=== PATIENT | male | born 1995 | race Caucasian/White ===

== ENCOUNTER 2018-08-18 12:18 | Emergency (ER) | payer SELFPAY ==
[2018-08-18 12:38] VITALS: BP 132/70
--- NOTE | 2018-08-18 12:56 | ER Document Report ---
Addendum entered and electronically signed by ELIZABETH VELÁZQUEZ PA-C 08/18/18 14:16: Course - Re-evaluation Re-evalutation: 08/18/18 14:14 I was notified by nursing that the patient would like to sign out AGAINST MEDICAL ADVICE as he needs to leave and does not want to stay. I went into review with the patient and thoroughly reviewed the risk and benefit of leaving AGAINST MEDICAL ADVICE including the possibility of worsening symptoms and . Patient has verbalized understanding of this and would like to sign out AMA. Patient given strict return precautions. - Vital Signs Vital signs: Temp Pulse Resp BP Pulse Ox 97.7 F 60 17 132/70 H 97 08/18/18 12:36 08/18/18 12:40 08/18/18 12:36 08/18/18 12:36 08/18/18 12:36 - Laboratory Result Diagrams: 08/18/18 13:15 08/18/18 13:15 Discharge - Discharge Clinical Impression: Atypical chest pain Condition: Stable Disposition: AGAINST MEDICAL ADVICE Additional Instructions: You are electing to sign out AGAINST MEDICAL ADVICE. You are aware that your condition can worsen and can result in . Do not hesitate to return for any worsening or concerning symptoms. Maintain adequate fluid and food intake Take home medications as directed Monitor blood pressure daily and keep a log Monitor symptoms for any acute changes Recheck with your PCM in 2-3 days Consider a follow-up with cardiology Return to the ED with any worsening symptoms and/or development of fever, headache, chest pain, palpitations, syncope, shortness of breath, trouble breathing, abdominal pain, n/v/d, blood in stool/urine, loss of control of bowel/bladder, urinary retention, muscle weakness/paralysis, numbness/tingling, or other worsening symptoms that are concerning to you. Forms: Elevated Blood Pressure, Smoking Cessation Education Original Note: ED Medical Screen (RME) - General Chief Complaint: Chest Pain Stated Complaint: CHEST PAIN Time Seen by Provider: 08/18/18 12:51 TRAVEL OUTSIDE OF THE [place] IN LAST 30 DAYS: No - HPI Notes: 08/18/18 12:54 Patient is a 22-year-old male who presents emergency department complaining of chest pain and trouble breathing. Patient states that he has had pain chronically, but increasing over the last couple weeks and pain that woke him up from sleep last night. Patient states that his shortness of breath associated with it at that time. He currently does not have any shortness of breath, but does have the pain. Pain will occasionally radiate to his back into his left shoulder. Food intake does not improve or worsen. + smoker and mother had SD. Denies any headache, fever, URI, sore throat, syncope, cough, wheeze, abdominal pain, nausea/vomiting/diarrhea, urinary retention, dysuria, hematuria, loss of control of bowel or bladder, numbness/tingling, saddle anesthesia, muscle paralysis/weakness, or rash. I have treated and performed a rapid initial assessment of this patient. A comprehensive ED assessment and evaluation of the patient, analysis of test results and completion of medical decision making process will be conducted by additional ED providers. PHYSICAL EXAMINATION: GENERAL: Well-appearing, well-nourished and in no acute distress. A&Ox4. Answers questions appropriately. LUNGS: Breath sounds clear to auscultation bilaterally and equal. No wheezes rales or rhonchi. HEART: Regular rate and rhythm without murmurs, rubs, gallops. ABDOMEN: Soft, nondistended abdomen. No guarding, no rebound. Normal bowel sounds present. No CVA tenderness bilaterally. non-tender. Extremities: No cyanosis, clubbing, or edema b/l. No lower extremity asymmetry. Tammy negative bilaterally. NEUROLOGICAL: Normal speech, normal gait. PSYCH: Normal mood, normal affect. - Related Data Allergies/Adverse Reactions: No Known Allergies Allergy (Unverified 08/18/18 12:21) Physical Exam - Vital signs Vitals: Temp Pulse Resp BP Pulse Ox 97.7 F 61 17 132/70 H 97 08/18/18 12:36 08/18/18 12:36 08/18/18 12:36 08/18/18 12:36 08/18/18 12:36 Course - Vital Signs Vital signs: Temp Pulse Resp BP Pulse Ox 97.7 F 61 17 132/70 H 97 08/18/18 12:36 08/18/18 12:36 08/18/18 12:36 08/18/18 12:36 08/18/18 12:36
--- NOTE | 2018-08-18 13:31 | EKG REPORT ---
SEVERITY:- NORMAL ECG - SINUS RHYTHM : Confirmed by: Miguel A Perez MD 18-Aug-2018 13:30:18
[2018-08-18 13:33] LABS: ABSOLUTE EOSINOPHILS # (AUTO) 0.1 10^3/uL (0.0-0.6); ABSOLUTE LYMPHOCYTES (AUTO) 1.2 10^3/uL (0.5-4.7); ABSOLUTE MONOCYTES (AUTO) 0.8 10^3/uL (0.1-1.4); ABSOLUTE NEUT (AUTO) 5.4 10^3/uL (1.7-8.2); BASOPHILS % (AUTO) 0.5 % (0-2); EOSINOPHILS % (AUTO) 1.3 % (0-6); HEMATOCRIT 44.2 % (37.9-51.0); HEMOGLOBIN 15.3 g/dL (13.5-17.0); LYMPHOCYTES % (AUTO) 16.3 % (13-45); MEAN CORPUSCULAR HEMOGLOBIN 30.6 pg (27.0-33.4); MEAN CORPUSCULAR HGB CONC 34.7 g/dL (32.0-36.0); MEAN CORPUSCULAR VOLUME 88 fl (80-97); PLATELET COUNT 196 10^3/uL (150-450); RED BLOOD COUNT 5.02 10^6/uL (4.35-5.55); RED CELL DISTRIBUTION WIDTH 13.4 % (11.5-14.0); SEGMENTED NEUTROPHILS % (AUTO) 71.9 % (42-78); TOTAL CELLS COUNTED % (AUTO) 100 %; WHITE BLOOD COUNT 7.5 10^3/uL (4.0-10.5)
[2018-08-18 13:49] LABS: URINE AMPHETAMINES SCREEN NEGATIVE; URINE BARBITURATES SCREEN NEGATIVE; URINE BENZODIAZEPINES SCREEN NEGATIVE; URINE COCAINE SCREEN NEGATIVE; URINE MARIJUANA (THC) SCREEN UNCONFIRMED POSITIVE; URINE METHADONE SCREEN NEGATIVE; URINE PHENCYCLIDINE SCREEN NEGATIVE
[2018-08-18 13:52] LABS: ALANINE AMINOTRANSFERASE 21 U/L (21-72); ALBUMIN 4.5 g/dL (3.5-5.0); ALKALINE PHOSPHATASE 59 U/L (38-126); ANION GAP 10 (5-19); ASPARTATE AMINO TRANSFERASE 26 U/L (17-59); BILIRUBIN,DIRECT 0.3 mg/dL (0.0-0.4); BILIRUBIN,TOTAL 0.6 mg/dL (0.2-1.3); BLOOD UREA NITROGEN 19 mg/dL (7-20); CALCIUM 9.9 mg/dL (8.4-10.2); CARBON DIOXIDE 29 mmol/L (22-30); CHLORIDE 100 mmol/L (98-107); GLUCOSE 84 mg/dL (75-110); PHOSPHORUS 3.7 mg/dL (2.5-4.5); POTASSIUM 4.1 mmol/L (3.6-5.0); SODIUM 138.9 mmol/L (137-145); TOTAL PROTEIN 7.3 g/dL (6.3-8.2)
--- NOTE | 2018-08-18 14:08 | RADIOLOGY REPORT (SQ) ---
EXAM DESCRIPTION: CHEST SINGLE VIEW COMPLETED DATE/TIME: 08/18/2018 1:51 pm REASON FOR STUDY: cp COMPARISON: None. EXAM PARAMETERS: NUMBER OF VIEWS: One view. TECHNIQUE: Single frontal radiographic view of the chest acquired. RADIATION DOSE: NA LIMITATIONS: None. FINDINGS: LUNGS AND PLEURA: No opacities, masses or pneumothorax. No pleural effusion. MEDIASTINUM AND HILAR STRUCTURES: No masses. Contour normal. HEART AND VASCULAR STRUCTURES: Heart normal in size. Normal vasculature. BONES: No acute findings. HARDWARE: None in the chest. OTHER: No other significant finding. IMPRESSION: 1. NO ACUTE RADIOGRAPHIC FINDING IN THE CHEST. TECHNICAL DOCUMENTATION: JOB ID: [id number] [employer]- All Rights Reserved Reading location - IP/workstation name: [email or web address]
[2018-08-18 14:18] LABS: FREE T3 4.38 pg/mL (2.77-5.27); FREE T4 (FREE THYROXINE) 1.35 ng/dL (0.78-2.19)
[2018-08-18 14:32] LABS: THYROID STIMULATING HORMONE 0.84 uIU/mL (0.47-4.68)
== END 2018-08-18 14:23 | disposition left against medical advice (07) ==
LOC: ER 12:18
DX: R07.89 Other chest pain (principal)
CPT/HCPCS: 36415; 71045; 80053; 80307; 83735; 84100; 84439; 84443; 84481; 84484; 85025; 93005; 93010; 99285